=== PATIENT | male | born 1990 | race Caucasian/White ===

== ENCOUNTER 2024-04-04 11:05 | Emergency (ER) | payer OTHER, SELFPAY ==
--- NOTE | ~2024-04-04 | XR_ITS ---
Left elbow Technique: AP, oblique, and lateral views were obtained. Clinical History: Pain Findings: No acute fracture or dislocation is seen. Osseous alignment is anatomic. Joint spaces are p reserved. There is no displacement of the fat pads, and no evidence of joint effusion. There is soft tissue swelling over the olecranon. Impression: Soft tissue swelling over the olecranon. Correlate for posttraumatic change versus olecranon bursitis . No fracture or dislocation. Reviewed, dictated and finalized at location M. Impression: Soft tissue swelling over the olecranon. Correlate for posttraumatic change mary tracy olecranon bursitis. No fracture or dislocation.
--- NOTE | 2024-04-04 11:15 | ED.GENADULT ---
HPI - General Adult General Chief complaint: Extremity Injury, Upper Stated complaint: L ELBOW INJURY Source: patient Mode of arrival: ambulatory Limitations: no limitations History of Present Illness HPI narrative: 33 y/o male with hx schizophrenia and bipolar disorder presented for c/o left elbow pain today. States he tripped and fell on 03/27, resulting in an abrasion ot the left elbow. Denies any pain or concerns until today. Rates pain 4/10. Has not applied any treatment to the wound. Endorses normal range of motion, denies numbness, tingling or weakness of the hand. Related Data Home Medications Medication Instructions Recorded Confirmed asenapine maleate 2.5 mg 2.5 mg sublingual BID 04/04/24 04/04/24 sublingual tablet (Saphris) cariprazine 4.5 mg capsule 4.5 mg PO DAILY 04/04/24 04/04/24 (Vraylar) clonidine HCl 0.2 mg tablet 0.4 mg PO DAILY 04/04/24 04/04/24 lamotrigine 150 mg tablet 150 mg PO DAILY 04/04/24 04/04/24 levothyroxine 25 mcg tablet 25 mcg PO DAILY 04/04/24 04/04/24 lithium carbonate 300 mg 1,650 mg PO DAILY 04/04/24 04/04/24 tablet,extended release oxcarbazepine 300 mg tablet 850 mg PO AC 04/04/24 04/04/24 Allergies Allergy/AdvReac Type Severity Reaction Status Date / Time No Known Allergies Allergy Mild Verified 04/04/24 11:31 Review of Systems Review of Systems: CONSTITUTIONAL: Denies body aches, fever, chills CARDIOVASCULAR: Denies chest pain, palpitations, or edema. RESPIRATORY: Denies cough or dyspnea. GASTROINTESTINAL: Denies abdominal pain, nausea, vomiting, or diarrhea. SKIN: Denies rash, itching, or wounds. MUSCULOSKELETAL: reports left elbow pain NEUROLOGIC: Denies headache, numbness, tingling, or weakness. All systems reviewed & are unremarkable except as noted in HPI and below PMFSH Past Medical History Medical History Bipolar disorder Schizophrenia Comments At time of signature, I have reviewed and agree with nursing past medical, surgical, social and family history unless otherwise noted. Please see nursing chart for further information. There is no relevant family history pertinent to the presenting complaint Exam Narrative: GENERAL: Well-appearing CHEST: Speaks in full sentences. No respiratory distress. HEART: Regular rate and rhythm. Normal and equal peripheral pulses. EXTREMITIES: WILDER has normal strength and sensation, normal range of motion at elbow without pain with movement. Left elbow tender with palpation, mild swelling. No ecchymosis, no obvious deformity; alignment normal, pulse palpable and equal bilaterally, skin warm, dry, pink. Capillary refill less than 3 seconds. SKIN: Warm, dry Left lateral elbow dried abrasion 6cm x 0.5cm. No active drainage. Mild surrounding erythema and swelling. NEURO: Alert and oriented x3. PSYCH: Normal mood and affect Course Course Emergency Course: Patient is aware of diagnosis, understands and agrees to treatment plan. Anticipatory guidance given. Patient agrees to follow-up as directed and is aware of reasons to seek care at the emergency department. Portions of this record may have been created with voice recognition software Level of Care: Express Care Visit Vital Signs Vital signs: Vital Signs Temperature 97.1 F L 04/04/24 11:16 Pulse Rate 88 04/04/24 11:16 Respiratory Rate 16 04/04/24 11:16 Blood Pressure 112/77 04/04/24 11:16 Pulse Oximetry 97 04/04/24 11:16 Temperature 97.1 F L 04/04/24 11:16 Pulse Rate 88 04/04/24 11:16 Respiratory Rate 16 04/04/24 11:16 Blood Pressure 112/77 04/04/24 11:16 Pulse Oximetry 97 04/04/24 11:16 Oxygen Delivery Room Air 04/04/24 11:24 Reviewed Medical Decision Making MDM Narrative Medical decision making narrative: Discussed physical exam findings and xray result. Declined jackie wrap today. Rx abx.. Advised supportive measures and signs/symptoms to go to the ER.
[2024-04-04 11:16] VITALS: BP 112/77; PULSE 88; RESP 16; TEMP 36.2; O2SAT 97
== END 2024-04-04 12:36 | disposition home or self-care (01) ==
PROVIDERS: Emergency Provider Nurse Practitioner Family
DX: S50.312A Abrasion of left elbow, initial encounter (principal); W01.0XXA Fall on same level from slipping, tripping and stumbling without subsequent striking against object, initial encounter; F31.9 Bipolar disorder, unspecified; F20.9 Schizophrenia, unspecified
CPT/HCPCS: 73080; 99213; G0463